=== PATIENT | male | born 1955 | race Caucasian/White ===

== ENCOUNTER 2018-12-16 06:11 | Inpatient (IN) | payer OTHER, MEDICAID ==
[~2018-12-16] VITALS: Ht 167.6 cm; Wt 76.1 kg
[~2018-12-16 06:11] MED LIST: AMIT50TA PO; BACL20TA PO; CYCL-259 PO; DULO60CA7 PO; GABA300C10 PO; HYDR-3307 PO; LISI1TAB3 PO; SENN1TAB67 PO; SIMV40TA3 PO; TAMS-11 PO
[2018-12-16] MEDS ORDERED: MIDAZOLAM 1 MG/ML, 2ML ONE (06:23)
[2018-12-16] MEDS ORDERED: FENTANYL PF 250 MCG/5ML ONE (06:23)
[2018-12-16] MEDS ORDERED: LACTATED RINGERS 1,000 ML IV SCH (06:30)
[2018-12-16] MEDS ORDERED: THROMBIN 5,000 UNIT VIAL TP ONE (06:31)
[2018-12-16] MEDS ORDERED: BUPIVACAINE/PF-EPI 0.5% 1:200K ONE (06:31)
[2018-12-16] MEDS ORDERED: BACITRACIN 50,000 UNIT ONE (06:32)
[2018-12-16 06:34] VITALS: BP 131/82
[2018-12-16] MEDS ORDERED: GABAPENTIN 300 MG CAPSULE PO ONE (07:00)
[2018-12-16] MEDS ORDERED: HYDROmorphone 1 MG/ML, 1ML INJ IV PRN (08:00)
[2018-12-16] MEDS ORDERED: LABETALOL 5MG/ML, 20ML IV PRN (08:00)
[2018-12-16] MEDS ORDERED: ALBUTEROL SULFATE 2.5 MG/3 ML NPPB PRN (08:00)
[2018-12-16] MEDS ORDERED: hydrALAzine 20 MG/ML, 1ML IV PRN (08:00)
[2018-12-16] MEDS ORDERED: PROMETHAZINE 25 MG/ML, 1ML IV PRN (08:00)
[2018-12-16] MEDS ORDERED: OXYcodone 5 MG/5 ML ORAL.SOL UDC PO PRN (08:00)
[2018-12-16] MEDS ORDERED: METOCLOPRAMIDE 5 MG/ML, 2ML IV PRN (08:00)
[2018-12-16] MEDS ORDERED: KETOROLAC 30 MG/1 ML IV PRN (08:00)
[2018-12-16] MEDS ORDERED: FENTANYL PF 100 MCG/2ML IV PRN (08:00)
[2018-12-16] MEDS ORDERED: ONDANSETRON 2MG/ML, 2ML IVPush PRN (08:00)
[2018-12-16] MEDS ORDERED: MEPERIDINE/PF 25MG/0.5ML IVPush PRN (08:00)
[2018-12-16] MEDS ORDERED: FENTANYL PF 100 MCG/2ML ONE (08:35)
[2018-12-16] MEDS ORDERED: HYDROmorphone 2 MG/ML, 1ML ONE (08:36)
[2018-12-16] MEDS ORDERED: OXYcodone 5 MG/5 ML ORAL.SOL UDC ONE (08:36)
[2018-12-16] MEDS ORDERED: hydrALAzine 20 MG/ML, 1ML ONE (09:22)
[2018-12-16] MEDS ORDERED: CYCLOBENZAPRINE 10 MG TABLET ONE (09:28)
[2018-12-16] MEDS ORDERED: CYCLOBENZAPRINE 10 MG TABLET PO ONE (09:30)
[2018-12-16 10:42] LABS: MICROSCOPIC NOT IND
[2018-12-16 10:43] LABS: CULTURE INDICATED? NO
[2018-12-16 10:45] VITALS: BP 115/66
[2018-12-16] MEDS ORDERED: PHARMACY MAY ADJ FOR RENAL FX MC PRN (11:00)
[2018-12-16] MEDS ORDERED: MAGNESIUM HYDROXIDE 8%, 30ML UDC PO PRN (11:30)
[2018-12-16] MEDS ORDERED: morphine SULFATE 10 MG/ML, 1ML IV PRN (11:30)
[2018-12-16] MEDS ORDERED: PROMETHAZINE 25 MG/ML, 1ML IM PRN (11:30)
[2018-12-16] MEDS ORDERED: DIPHENHYDRAMINE 50 MG CAPSULE PO PRN (11:30)
[2018-12-16] MEDS ORDERED: BISACODYL 10 MG SUPP PR PRN (11:30)
[2018-12-16] MEDS ORDERED: CYCLOBENZAPRINE 10 MG TABLET PO PRN (11:30)
[2018-12-16] MEDS ORDERED: OXYcodone/APAP 5/325MG TABLET PO PRN (11:30)
[2018-12-16] MEDS ORDERED: ONDANSETRON 2MG/ML, 2ML IV PRN (11:30)
[2018-12-16 14:00] VITALS: BP 123/81
[2018-12-16] MEDS: CEFAZOLIN PMX 1GM/50ML 50 ML IVPB SCH ×2 (15:13→23:03)
[2018-12-16] MEDS: D5%-0.9% NACL+KCL 20MEQ 1,000 ML IV SCH (15:13)
[2018-12-16] MEDS ORDERED: PROPOFOL 10 MG/ML, 20ML ONE (15:42)
[2018-12-16] MEDS ORDERED: DEXAMETHASONE 4 MG/ML, 5ML ONE (15:42)
[2018-12-16] MEDS ORDERED: CEFAZOLIN 1,000 MG ONE (15:42)
[2018-12-16] MEDS ORDERED: SUCCINYLCHOLINE 20 MG/ML, 10ML ONE (15:42)
[2018-12-16] MEDS ORDERED: ROCURONIUM 10MG/ML,5ML ONE (15:42)
[2018-12-16] MEDS ORDERED: KETOROLAC 30 MG/1 ML ONE (15:42)
[2018-12-16] MEDS ORDERED: ONDANSETRON 2MG/ML, 2ML ONE (15:42)
[2018-12-16] MEDS: HYDROcodone/APAP 10/325 MG TABLET PO PRN ×2 (17:21→23:03)
[2018-12-16] MEDS: GABAPENTIN 300 MG CAPSULE PO SCH (20:57)
[2018-12-16] MEDS ORDERED: SIMVASTATIN 40 MG TABLET PO SCH (21:00)
[2018-12-16 21:58] VITALS: BP 107/71
[2018-12-17 00:52] VITALS: BP 105/69
[2018-12-17] MEDS: D5%-0.9% NACL+KCL 20MEQ 1,000 ML IV SCH ×2 (01:13→11:00)
[2018-12-17 04:49] VITALS: BP 136/82
[2018-12-17] MEDS ORDERED: HYDROCHLOROTHIAZIDE 12.5 MG CAPSULE PO SCH (09:00)
[2018-12-17] MEDS ORDERED: LISINOPRIL 10 MG TABLET PO SCH (09:00)
[2018-12-17] MEDS ORDERED: DULOXETINE 30 MG CAPSULE.DR PO SCH (09:00)
[2018-12-17] MEDS ORDERED: SENNA/DOCUSATE TABLET PO SCH (09:00)
[2018-12-17] MEDS ORDERED: TAMSULOSIN 0.4 MG CAP.ER.24H PO SCH (09:00)
[2018-12-17 09:19] VITALS: BP 150/74
[2018-12-17] MEDS: GABAPENTIN 300 MG CAPSULE PO SCH (10:19)
[2018-12-17] MEDS ORDERED: HYDR-3307 PO (11:43)
[2018-12-17] MEDS ORDERED: CYCL-259 PO (11:43)
[2018-12-17] MEDS ORDERED: METH4TAB2 PO (11:50)
[2018-12-17 13:21] VITALS: BP 164/82
[2018-12-17] MEDS: HYDROcodone/APAP 10/325 MG TABLET PO PRN (13:28)
== END 2018-12-17 14:01 | disposition home or self-care (01) | DRG 472 ==
LOC: ORIP 06:11 → 4NOR 10:34 → DCLOUNGE 12-17 13:37
PROVIDERS: ADMIT Neurological Surgery; ATTEND Neurological Surgery
PROC: 01N10ZZ Release Cervical Nerve, Open Approach (ICD-10-PCS; 2018-12-16)
PROC: 0RB30ZZ Excision of Cervical Vertebral Disc, Open Approach (ICD-10-PCS; 2018-12-16)
PROC: 00NW0ZZ Release Cervical Spinal Cord, Open Approach (ICD-10-PCS; 2018-12-16)
PROC: 0RG20A0 Fusion of 2 or more Cervical Vertebral Joints with Interbody Fusion Device, Anterior Approach, Anterior Column, Open Approach (ICD-10-PCS; principal; 2018-12-16 07:00)
DX: M48.02 Spinal stenosis, cervical region (principal); M50.021 Cervical disc disorder at C4-C5 level with myelopathy; G35 Multiple sclerosis; M50.121 Cervical disc disorder at C4-C5 level with radiculopathy; I10 Essential (primary) hypertension
CPT/HCPCS: 72040; 81003; C1713; G0378; J0690; J1100; J1885; J2250; J2405; J2704; J3010; C1762; J0330; J0360; J3480; J7120

== ENCOUNTER 2018-12-19 17:37 | Inpatient (IN) | payer OTHER, MEDICAID ==
[~2018-12-19] VITALS: Ht 167.6 cm; Wt 71.2 kg
[~2018-12-19 17:37] MED LIST changes: +METH4TAB2 PO
--- NOTE | 2018-12-19 18:10 | NUR ---
BLADDER SCAN DONE SHOWING 130 MLS. PT TO RAD. 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 PT HAS HAD PRODUCTIVE COUGH SINCE CERVICAL FUSION SURGERY ON 12/16/18. PT C/O HAND AND LEFT SHOULDER PAIN.
--- NOTE | 2018-12-19 18:50 | NUR ---
PT STILL IN RAD.
--- NOTE | 2018-12-19 18:57 | NUR ---
IV STARTED IN MRI FOR CONTRAST.
[2018-12-19] MEDS ORDERED: GADOBUTROL 7.5 MMOL/7.5 ML PFS ONE (19:00)
[2018-12-19 19:36] LABS: BASOPHILS # (AUTO) 0.01 x10^3/uL (0-0.1); BASOPHILS % (AUTO) 0 % (0-1); EOSINOPHILS # (AUTO) 0.04 x10^3/uL (0-0.4); EOSINOPHILS % (AUTO) 0 % (1-7); LYMPHOCYTES # (AUTO) 0.85 x10^3/uL (1-3.4); LYMPHOCYTES % (AUTO) 6 % (22-44); MD NO; MEAN CORPUSCULAR HEMOGLOBIN 32.5 pg (27.5-34.5); MEAN CORPUSCULAR VOLUME 95.7 fL (81-97); MEAN PLATELET VOLUME 8.2 fL (7.4-10.4); MONOCYTES # (AUTO) 0.66 x10^3/uL (0.2-0.8); MONOCYTES % (AUTO) 5 % (2-9); NEUTROPHILS # (AUTO) 12.43 x10^3/uL (1.8-6.8); NEUTROPHILS % (AUTO) 89 % (42-75); PLATELET COUNT 295 x10^3/uL (130-400); RED BLOOD COUNT 4.12 x10^6/uL (4.38-5.82); RED CELL DISTRIBUTION WIDTH 13.8 % (9.4-14.8)
--- NOTE | 2018-12-19 19:41 | NUR ---
PT STILL HAS FEVER OF 101.0. PT WAS 88% ON RA AND GIVEN 2 LITERS O2 NC. PT WENT UP TO 96%. DR. JORDAN AWARE. BLOOD CULTURES TO BE DRAWN AND ANTIBIOTICS STARTED.
[2018-12-19 19:48] LABS: ALBUMIN 3.5 g/dL (3.4-5.0); ANION GAP 6 mmol/L (5-15); CALCIUM 8.3 mg/dL (8.5-10.1); CHLORIDE 104 mmol/L (98-107); CREATININE 0.91 mg/dL (0.7-1.3)
[2018-12-19] MEDS ORDERED: SODIUM CHLORIDE FLUSH 10ML SYR IVF ONE (20:00)
[2018-12-19] MEDS ORDERED: CEFTRIAXONE PMX 1GM/50ML 50 ML IVPB ONE (20:00)
[2018-12-19] MEDS ORDERED: SODIUM CHLORIDE 0.9% 1,000ML IVBOLUS ONE ×2 (20:00→21:00)
[2018-12-19] MEDS ORDERED: CEFTRIAXONE PMX 1GM/50ML 50 ML ONE (20:17)
[2018-12-19] MEDS ORDERED: DEXAMETHASONE 4 MG/ML, 1ML ONE (20:17)
[2018-12-19] MEDS: DEXAMETHASONE 4 MG/ML, 1ML IVPush SCH ×2 (20:22→21:00)
[2018-12-19] MEDS ORDERED: SODIUM CHLORIDE FLUSH 10ML SYR IVF PRN (20:30)
[2018-12-19] MEDS ORDERED: DEXAMETHASONE 4 MG/ML, 1ML IVPush ONE (20:30)
[2018-12-19] MEDS: AZITHROMYCIN 500 MG in SODIUM CHLORIDE 0.9% 250 ML IV ONE ×2 (20:30→21:27)
--- NOTE | 2018-12-19 20:41 | NUR ---
DR. BEAUCHAMP AT BEDSIDE FOR ADMIT. PT TO BE ADMITTED TO THE ICU. ICU DOES NOT HAVE ANY BEDS AND PT WILL BE A HOLD. HOSPITAL BED REQUESTED.
[2018-12-19 20:51] LABS: MICROSCOPIC NOT IND
[2018-12-19 21:00] LABS: CULTURE INDICATED? NO
[2018-12-19] MEDS ORDERED: AZITHROMYCIN 500 MG in SODIUM CHLORIDE 0.9% 250 ML IV SCH (21:00)
[2018-12-19] MEDS ORDERED: KETOROLAC 30 MG/1 ML IV PRN (21:00)
[2018-12-19] MEDS ORDERED: ONDANSETRON 2MG/ML, 2ML IVPush PRN (21:00)
[2018-12-19] MEDS ORDERED: CEFTRIAXONE 1,000 MG in SODIUM CHLORIDE 0.9% 50 ML IVPB SCH (21:00)
[2018-12-19] MEDS ORDERED: morphine SULFATE 10 MG/ML, 1ML IVPush PRN (21:00)
[2018-12-19] MEDS ORDERED: ACETAMINOPHEN 325 MG TABLET PO PRN (21:00)
[2018-12-19] MEDS ORDERED: CYCLOBENZAPRINE 10 MG TABLET PO PRN (21:00)
[2018-12-19] MEDS ORDERED: LABETALOL 5MG/ML, 20ML IVPush PRN (21:00)
[2018-12-19] MEDS ORDERED: POLYETHYLENE GLYCOL 17 GM PACKET PO PRN (21:00)
[2018-12-19] MEDS ORDERED: OXYcodone/APAP 5/325MG TABLET PO PRN (21:00)
[2018-12-19] MEDS ORDERED: KETOROLAC 30 MG/1 ML ONE (21:39)
[2018-12-19] MEDS ORDERED: TAMSULOSIN 0.4 MG CAP.ER.24H ONE (21:41)
[2018-12-19] MEDS ORDERED: FAMOTIDINE 20 MG TABLET ONE (21:41)
[2018-12-19] MEDS ORDERED: GABAPENTIN 300 MG CAPSULE ONE (21:41)
[2018-12-19] MEDS: GABAPENTIN 300 MG CAPSULE PO SCH (21:44)
[2018-12-19] MEDS: FAMOTIDINE 20 MG TABLET PO SCH (21:44)
[2018-12-19] MEDS: TAMSULOSIN 0.4 MG CAP.ER.24H PO SCH (21:45)
[2018-12-19] MEDS: HYDROCHLOROTHIAZIDE 12.5 MG CAPSULE PO SCH (22:03)
[2018-12-19] MEDS: SIMVASTATIN 40 MG TABLET PO SCH (22:03)
[2018-12-19] MEDS: DULOXETINE 30 MG CAPSULE.DR PO SCH (22:03)
[2018-12-19] MEDS: AMITRIPTYLINE 50 MG TABLET PO SCH (22:03)
[2018-12-19] MEDS ORDERED: LISINOPRIL 10 MG TABLET ONE (22:05)
[2018-12-19] MEDS: LISINOPRIL 10 MG TABLET PO SCH (22:07)
--- NOTE | 2018-12-19 22:13 | NUR ---
REPORT TO DOROTHY LUCERO.
[2018-12-19] MEDS: LACTATED RINGERS 1,000 ML IV SCH (22:37)
--- NOTE | 2018-12-19 22:42 | NUR ---
PT RESTING CALMLY WATCHING TV, DENIES PAIN OR NEEDS AT THIS TIME, IV FLUIDS INFUSING, MONITORS IN PLACE, SIDERAILS UP X2, CALL LIGHT WITHIN REACH.
[2018-12-19] MEDS ORDERED: TIZANIDINE 4MG TABLET PO PRN (23:00)
--- NOTE | 2018-12-19 23:01 | NUR ---
PROVIDED PT WITH SPECIMEN CUP FOR SPUTUM SAMPLE, PT UNABLE TO PROVIDE SAMPLE AT THIS TIME
[2018-12-19 23:19] LABS: RAPID INFLUENZA A Negative (Negative); RAPID INFLUENZA B Negative (Negative)
--- NOTE | 2018-12-20 00:04 | NUR ---
PT RESTING WITH EYES CLOSED, AROUSES EASILY TO VERBAL RESPONSE, DENIES PAIN OR NEEDS, MONITORS IN PLACE, SIDERAILS UP X2, CALL LIGHT WITHIN REACH
--- NOTE | 2018-12-20 00:52 | NUR ---
RESTING QUIETLY, NAD AT THIS TIME.
--- NOTE | 2018-12-20 01:09 | NUR ---
PT REPORTS THAT HE IS FEELING "FINE, NO PRBLEMS AT THIS TIME. PLEASANT GENTLEMAN, URINAL EMPTIED AND REMINDED OF US OF CALL CARDOZA.
--- NOTE | 2018-12-20 01:58 | NUR ---
PT RESTING CALMLY, DENIES NEEDS, MONITORS IN PLACE, CALL LIGHT WITHIN REACH
[2018-12-20] MEDS ORDERED: DEXAMETHASONE 4 MG/ML, 1ML ONE ×2 (02:55→07:48)
[2018-12-20] MEDS: DEXAMETHASONE 4 MG/ML, 1ML IVPush SCH ×5 (02:59→22:18)
--- NOTE | 2018-12-20 02:59 | NUR ---
PT MEDICATED PER MAR
--- NOTE | 2018-12-20 03:21 | NUR ---
NOTED PT SPILT URINAL IN HIS BED, PT AND ROOM CLEANED, PROVIDED PT WITH CLEAN GOWN,FULL LINEN CHANGE COMPLETED.
--- NOTE | 2018-12-20 04:14 | NUR ---
PT RESTING WITH EYES CLOSED, AROUSES TO VERBAL RESPONSE, ANSWERS ALL QUESTIONS APPROPRIATELY, DENIES NEEDS, CALL LIGHT WITHIN REACH.
[2018-12-20 04:28] LABS: BASOPHILS # (AUTO) 0.04 x10^3/uL (0-0.1); BASOPHILS % (AUTO) 0 % (0-1); EOSINOPHILS % (AUTO) 0 % (1-7); LYMPHOCYTES # (AUTO) 0.66 x10^3/uL (1-3.4); LYMPHOCYTES % (AUTO) 4 % (22-44); MD NO; MEAN CORPUSCULAR HEMOGLOBIN 32.3 pg (27.5-34.5); MEAN CORPUSCULAR HGB CONC 33.7 g/dL (33.2-36.2); MEAN CORPUSCULAR VOLUME 95.9 fL (81-97); MEAN PLATELET VOLUME 8.3 fL (7.4-10.4); MONOCYTES # (AUTO) 0.48 x10^3/uL (0.2-0.8); MONOCYTES % (AUTO) 3 % (2-9); NEUTROPHILS # (AUTO) 13.63 x10^3/uL (1.8-6.8); NEUTROPHILS % (AUTO) 92 % (42-75); PLATELET COUNT 255 x10^3/uL (130-400); RED BLOOD COUNT 3.57 x10^6/uL (4.38-5.82); RED CELL DISTRIBUTION WIDTH 13.8 % (9.4-14.8)
[2018-12-20 04:35] LABS: ANION GAP 4 mmol/L (5-15); CALCIUM 7.7 mg/dL (8.5-10.1); CHLORIDE 111 mmol/L (98-107)
[2018-12-20 04:36] LABS: CREATININE 0.83 mg/dL (0.7-1.3)
--- NOTE | 2018-12-20 05:05 | NUR ---
PT RESTING WITH EYES CLOSED, NAD, EQUAL CHEST RISE/FALL OBSERVED, SIDERAILS UP X2, CALL LIGHT WITHIN REACH
--- NOTE | 2018-12-20 05:51 | NUR ---
[employer] CALLED FOR CENTRAL STOCKINGS Addendum: 12/20/18 at 0552 by RICHARD [employer] CALLED FOR SEQUENTIAL STOCKINGS
[2018-12-20] MEDS: LACTATED RINGERS 1,000 ML IV SCH (06:02)
--- NOTE | 2018-12-20 06:09 | NUR ---
PT RESTING IN BED, SEQUENTIAL STOCKING APPLIED, DENIES NEEDS, CALL LIGHT WITHIN REACH
--- NOTE | 2018-12-20 06:58 | NUR ---
REPORT GIVEN TO JAZMINE VALENCIA
[2018-12-20] MEDS ORDERED: SENNA/DOCUSATE TABLET ONE (07:48)
[2018-12-20] MEDS ORDERED: FAMOTIDINE 20 MG TABLET ONE (07:48)
[2018-12-20] MEDS ORDERED: GABAPENTIN 300 MG CAPSULE ONE (07:49)
[2018-12-20] MEDS: FAMOTIDINE 20 MG TABLET PO SCH (07:56)
[2018-12-20] MEDS: SENNA/DOCUSATE TABLET PO SCH (07:56)
[2018-12-20] MEDS: GABAPENTIN 300 MG CAPSULE PO SCH ×2 (07:57→22:18)
--- NOTE | 2018-12-20 08:08 | NUR ---
0700 - 0808 SBAR RPT REC'D FROM JAZMINE DE LA CRUZ. PT ASSISSTED RN X 1 OOB TO SIT IN CHAIR. PT ABLE TO STAND W/O ASSISTANCE, SHUFFLE GAIT TO TRANSFER TO CHAIR. SITS UP INDEPENDANTLY. WAFFLE MATTRESS PLAED ON BED AND COMPLETE LINEN CHANGE. PT WITH INCONTINENCE BRIEF IN PLACE. BREIF REMOVED, SKIN INTACT. PT VERBALIZES HE IS ABLE TO USE URINAL. PT RTD TO BED, CLEAN GOWN PLACED, ECG STICKERS REMOVED AND NEW PLACED IN DIFFERENT AREA. WARM BLANKETS PROVIDED AND URINAL PLACED AT BEDSIDE W/I PT REACH. CALL LIGHT W/I REACH. PT MED NOTED AND DAILY POC REVIEWED. PT W/ FAINT CRACKLES NOTED TO JERED POSTERIOR LUNG BASES. PT INSTRUCTED ON USE OF INCENTIVE SPIROMETER (IS) WEAK EFFORT WITH VOLUMES TO 450ML. TODAYS IS GOAL OF 750ML DISCUSSED WITH PT AND PT AGREES TO USE IS 2X EVERYTIME A TV COMMERCIAL IS ON. DIET TRAY ORDERED.
[2018-12-20] MEDS: HYDROCHLOROTHIAZIDE 12.5 MG CAPSULE PO SCH (08:17)
--- NOTE | 2018-12-20 10:15 | NUR ---
PT ATE 100% OF BREAKFAST. PT OOB TO CHAIR WITH RN STAND BY ASSIST. URINAL, CALL LIGHT AND CELL PHONE W/I REACH. PT VERBALIZES UNDERSTANDING TO CALL FOR RN IF HE NEEDS ANYTHING.
--- NOTE | 2018-12-20 10:19 | NUR ---
LATE ENTRY 0845 DR OLVERA AT BEDSIDE. PT ASSESSMENT, CT RESULTS REVIEWED. POC DISCUSSED. PT SITTING UPRIGHT IN BED EATING BREAKFAST, NO S/S OF SWALLOWING DIFFICULTY NOTED. DR OLVERA REQUESTS PT TO BE NPO AFTER BREAKFAST AND SWALLOWING EVAL TO BE DONE IN AM. PT VERBALIZES UNDERSTANDING. RIGHT NECK FLUID COLLECTION STABLE ON CT PER DR. OLVERA, NO TRACHEAL IMPINGMENT NOTED. PT OK TO BE OOB TO CHAIR TOLLERATED.
--- NOTE | 2018-12-20 11:04 | NUR ---
PT RTD TO BED, RN STANDBY ASSIST. PT USING IS INDEPENDENTLY, VOLUMES NOW TO 750ML AND INCREASED COUGHING.
--- NOTE | 2018-12-20 11:30 | NUR ---
SBAR RPT TO SE[facility]IEN, CCU, RN
[2018-12-20] MEDS: MEROPENEM 1 GM in SODIUM CHLORIDE 0.9% 100 ML IV SCH ×2 (12:06→20:26)
[2018-12-20] MEDS ORDERED: VANCOMYCIN PER PHARMACY MC PRN (13:00)
[2018-12-20] MEDS ORDERED: PHARMACOKINETIC CONSULTATION MC ONE (13:00)
[2018-12-20] MEDS ORDERED: PHARMACOKINETIC MONITORING MC PRN (13:00)
[2018-12-20 14:48] VITALS: BP 158/92
[2018-12-20] MEDS: VANCOMYCIN 1,400 MG in SODIUM CHLORIDE 0.9% 250 ML IV SCH (17:23)
--- NOTE | 2018-12-20 17:24 | NUR ---
REC NPO; swallow precautions sheet posted at bedside Addendum: 12/20/18 at [address] Amended: Links added.
[2018-12-20] MEDS: LISINOPRIL 10 MG TABLET PO SCH (22:18)
[2018-12-20] MEDS: AMITRIPTYLINE 50 MG TABLET PO SCH (22:18)
[2018-12-20] MEDS: TAMSULOSIN 0.4 MG CAP.ER.24H PO SCH (22:18)
[2018-12-20] MEDS: DULOXETINE 30 MG CAPSULE.DR PO SCH (22:19)
[2018-12-20] MEDS: SIMVASTATIN 40 MG TABLET PO SCH (22:19)
[2018-12-21] MEDS: DEXAMETHASONE 4 MG/ML, 1ML IVPush SCH ×2 (03:23→09:07)
[2018-12-21 04:00] VITALS: BP 134/83
[2018-12-21 05:04] LABS: BASOPHILS # (AUTO) 0.01 x10^3/uL (0-0.1); BASOPHILS % (AUTO) 0 % (0-1); EOSINOPHILS % (AUTO) 0 % (1-7); LYMPHOCYTES # (AUTO) 0.82 x10^3/uL (1-3.4); LYMPHOCYTES % (AUTO) 6 % (22-44); MD NO; MEAN CORPUSCULAR HEMOGLOBIN 32.2 pg (27.5-34.5); MEAN CORPUSCULAR HGB CONC 34.1 g/dL (33.2-36.2); MEAN CORPUSCULAR VOLUME 94.5 fL (81-97); MEAN PLATELET VOLUME 8.6 fL (7.4-10.4); MONOCYTES % (AUTO) 2 % (2-9); NEUTROPHILS # (AUTO) 13.11 x10^3/uL (1.8-6.8); NEUTROPHILS % (AUTO) 92 % (42-75); PLATELET COUNT 340 x10^3/uL (130-400); RED BLOOD COUNT 4.15 x10^6/uL (4.38-5.82); RED CELL DISTRIBUTION WIDTH 13.8 % (9.4-14.8)
[2018-12-21] MEDS: MEROPENEM 1 GM in SODIUM CHLORIDE 0.9% 100 ML IV SCH ×3 (05:05→20:26)
[2018-12-21 05:24] LABS: ALANINE AMINOTRANSFERASE 19 U/L (12-78); ALBUMIN 2.9 g/dL (3.4-5.0); ANION GAP 5 mmol/L (5-15); CALCIUM 8.6 mg/dL (8.5-10.1); CHLORIDE 108 mmol/L (98-107); CREATININE 0.84 mg/dL (0.7-1.3)
[2018-12-21 05:27] LABS: ALKALINE PHOSPHATASE 66 U/L (45-117); BILIRUBIN,TOTAL 0.9 mg/dL (0.2-1.0); TOTAL PROTEIN 6.8 g/dL (6.4-8.2)
[2018-12-21] MEDS: VANCOMYCIN 1,400 MG in SODIUM CHLORIDE 0.9% 250 ML IV SCH (06:34)
[2018-12-21] MEDS: SENNA/DOCUSATE TABLET PO SCH (09:05)
[2018-12-21] MEDS: HYDROCHLOROTHIAZIDE 12.5 MG CAPSULE PO SCH (09:06)
[2018-12-21] MEDS: GABAPENTIN 300 MG CAPSULE PO SCH ×2 (09:07→20:37)
[2018-12-21] MEDS ORDERED: FAMOTIDINE 20 MG/2 ML IVPush SCH (09:30)
[2018-12-21] MEDS: ALUMINUM/MAG/SIMETHICONE 30 ML UDC PO SCH ×2 (11:28→17:29)
[2018-12-21] MEDS: LIDOCAINE 2% VISCOUS 15 ML UDC PO SCH ×2 (11:30→17:29)
[2018-12-21 13:28] LABS: HCT (SEDRATE) 38.8 % (39.2-51.8)
[2018-12-21] MEDS: TAMSULOSIN 0.4 MG CAP.ER.24H PO SCH (20:37)
[2018-12-21] MEDS: AMITRIPTYLINE 50 MG TABLET PO SCH (20:38)
[2018-12-21] MEDS: FAMOTIDINE 20 MG TABLET PO SCH (20:38)
[2018-12-21] MEDS: SIMVASTATIN 40 MG TABLET PO SCH (20:38)
[2018-12-21] MEDS: DULOXETINE 30 MG CAPSULE.DR PO SCH (20:38)
[2018-12-21] MEDS: LISINOPRIL 10 MG TABLET PO SCH (20:38)
[2018-12-21] MEDS ORDERED: DEXAMETHASONE 4 MG/ML, 1ML IV SCH (21:00)
[2018-12-21 21:45] VITALS: BP 173/91
[2018-12-21] MEDS: ENALAPRILAT 1.25 MG/ML, 2ML IVPush PRN ×2 (21:55→22:47)
[2018-12-21 22:17] VITALS: BP 166/86
[2018-12-21 22:40] VITALS: BP 182/100
[2018-12-21 23:39] VITALS: BP 182/97
[2018-12-21] MEDS: LABETALOL 5 MG/ML SYRINGE IVPush PRN (23:42)
[2018-12-22] MEDS: VANCOMYCIN 1,400 MG in SODIUM CHLORIDE 0.9% 250 ML IV SCH (00:41)
[2018-12-22 00:47] VITALS: BP 152/80
[2018-12-22] MEDS: MEROPENEM 1 GM in SODIUM CHLORIDE 0.9% 100 ML IV SCH ×3 (04:51→20:12)
[2018-12-22 05:26] LABS: BASOPHILS % (AUTO) 0 % (0-1); EOSINOPHILS # (AUTO) 0.11 x10^3/uL (0-0.4); EOSINOPHILS % (AUTO) 1 % (1-7); LYMPHOCYTES # (AUTO) 0.98 x10^3/uL (1-3.4); LYMPHOCYTES % (AUTO) 8 % (22-44); MD NO; MEAN CORPUSCULAR HEMOGLOBIN 31.9 pg (27.5-34.5); MEAN CORPUSCULAR HGB CONC 33.7 g/dL (33.2-36.2); MEAN CORPUSCULAR VOLUME 94.7 fL (81-97); MEAN PLATELET VOLUME 8.3 fL (7.4-10.4); MONOCYTES % (AUTO) 4 % (2-9); NEUTROPHILS # (AUTO) 11.33 x10^3/uL (1.8-6.8); NEUTROPHILS % (AUTO) 88 % (42-75); PLATELET COUNT 374 x10^3/uL (130-400); RED BLOOD COUNT 3.84 x10^6/uL (4.38-5.82); RED CELL DISTRIBUTION WIDTH 13.5 % (9.4-14.8)
[2018-12-22 05:39] LABS: HCT (SEDRATE) 36.4 % (39.2-51.8)
[2018-12-22 05:40] LABS: CHLORIDE 107 mmol/L (98-107)
[2018-12-22 05:57] LABS: ALANINE AMINOTRANSFERASE 23 U/L (12-78); ALBUMIN 2.6 g/dL (3.4-5.0); ALKALINE PHOSPHATASE 62 U/L (45-117); ANION GAP 6 mmol/L (5-15); BILIRUBIN,TOTAL 0.5 mg/dL (0.2-1.0); CALCIUM 8.3 mg/dL (8.5-10.1); CREATININE 0.81 mg/dL (0.7-1.3); TOTAL PROTEIN 6.3 g/dL (6.4-8.2)
[2018-12-22] MEDS: LIDOCAINE 2% VISCOUS 15 ML UDC PO SCH ×3 (06:31→16:00)
[2018-12-22] MEDS: ALUMINUM/MAG/SIMETHICONE 30 ML UDC PO SCH ×3 (06:31→16:00)
[2018-12-22 07:49] VITALS: BP 148/90
[2018-12-22] MEDS: GABAPENTIN 300 MG CAPSULE PO SCH ×2 (08:21→20:13)
[2018-12-22] MEDS: SENNA/DOCUSATE TABLET PO SCH (08:21)
[2018-12-22] MEDS: FAMOTIDINE 20 MG TABLET PO SCH ×2 (08:21→20:13)
[2018-12-22] MEDS: HYDROCHLOROTHIAZIDE 12.5 MG CAPSULE PO SCH (08:21)
[2018-12-22] MEDS: DEXAMETHASONE 4 MG/ML, 1ML IV SCH ×2 (09:08→17:00)
[2018-12-22 13:27] VITALS: BP 145/89
[2018-12-22 19:33] VITALS: BP 160/94
[2018-12-22] MEDS: LISINOPRIL 10 MG TABLET PO SCH (20:12)
[2018-12-22] MEDS: SIMVASTATIN 40 MG TABLET PO SCH (20:13)
[2018-12-22] MEDS: TAMSULOSIN 0.4 MG CAP.ER.24H PO SCH (20:13)
[2018-12-22] MEDS: AMITRIPTYLINE 50 MG TABLET PO SCH (20:13)
[2018-12-22] MEDS: DULOXETINE 30 MG CAPSULE.DR PO SCH (20:13)
[2018-12-23] MEDS: DEXAMETHASONE 4 MG/ML, 1ML IV SCH (00:44)
[2018-12-23 01:15] VITALS: BP 173/96
[2018-12-23] MEDS: LABETALOL 5 MG/ML SYRINGE IVPush PRN (02:00)
[2018-12-23 03:20] VITALS: BP 144/91
[2018-12-23] MEDS: MEROPENEM 1 GM in SODIUM CHLORIDE 0.9% 100 ML IV SCH ×2 (03:28→12:10)
[2018-12-23 05:28] LABS: BASOPHILS # (AUTO) 0.07 x10^3/uL (0-0.1); BASOPHILS % (AUTO) 1 % (0-1); EOSINOPHILS % (AUTO) 0 % (1-7); LYMPHOCYTES # (AUTO) 1.24 x10^3/uL (1-3.4); LYMPHOCYTES % (AUTO) 10 % (22-44); MD NO; MEAN CORPUSCULAR HEMOGLOBIN 32.1 pg (27.5-34.5); MEAN CORPUSCULAR HGB CONC 33.8 g/dL (33.2-36.2); MEAN CORPUSCULAR VOLUME 94.8 fL (81-97); MEAN PLATELET VOLUME 8.5 fL (7.4-10.4); MONOCYTES # (AUTO) 0.92 x10^3/uL (0.2-0.8); MONOCYTES % (AUTO) 8 % (2-9); NEUTROPHILS # (AUTO) 9.67 x10^3/uL (1.8-6.8); NEUTROPHILS % (AUTO) 81 % (42-75); PLATELET COUNT 381 x10^3/uL (130-400); RED BLOOD COUNT 4.02 x10^6/uL (4.38-5.82); RED CELL DISTRIBUTION WIDTH 13.9 % (9.4-14.8)
[2018-12-23 05:37] LABS: ANION GAP 7 mmol/L (5-15); CALCIUM 8.4 mg/dL (8.5-10.1); CHLORIDE 106 mmol/L (98-107)
[2018-12-23 05:39] LABS: CREATININE 0.86 mg/dL (0.7-1.3)
[2018-12-23] MEDS: LIDOCAINE 2% VISCOUS 15 ML UDC PO SCH ×3 (06:28→16:22)
[2018-12-23] MEDS: ALUMINUM/MAG/SIMETHICONE 30 ML UDC PO SCH ×3 (06:28→16:21)
[2018-12-23 06:55] VITALS: BP 142/91
[2018-12-23] MEDS: GABAPENTIN 300 MG CAPSULE PO SCH (08:13)
[2018-12-23] MEDS: FAMOTIDINE 20 MG TABLET PO SCH (08:13)
[2018-12-23] MEDS: HYDROCHLOROTHIAZIDE 12.5 MG CAPSULE PO SCH (08:13)
[2018-12-23] MEDS: SENNA/DOCUSATE TABLET PO SCH (08:13)
[2018-12-23 14:04] VITALS: BP 160/94
[2018-12-23] MEDS ORDERED: ACID1TAB7 PO (15:40)
[2018-12-23] MEDS ORDERED: CEFD300C37 PO (15:40)
[2018-12-23] MEDS ORDERED: CEFDINIR 300 MG CAPSULE PO SCH (16:00)
[2018-12-23] MEDS ORDERED: LACTOBACILLUS CHEW TABLET PO SCH (16:00)
== END 2018-12-23 18:19 | disposition home health service (06) | DRG 871 ==
LOC: ED 18:20 → EDIP 20:23 → CCU 12-20 10:19 → 3NE 12-21 21:51
PROVIDERS: ADMIT Family Medicine; ATTEND Family Medicine
DX: A41.9 Sepsis, unspecified organism (principal); J15.9 Unspecified bacterial pneumonia; M96.842 Postprocedural seroma of a musculoskeletal structure following a musculoskeletal system procedure; G35 Multiple sclerosis; E78.00 Pure hypercholesterolemia, unspecified; E78.5 Hyperlipidemia, unspecified; I10 Essential (primary) hypertension; M19.90 Unspecified osteoarthritis, unspecified site; R13.10 Dysphagia, unspecified; N40.0 Benign prostatic hyperplasia without lower urinary tract symptoms; Y83.8 Other surgical procedures as the cause of abnormal reaction of the patient, or of later complication, without mention of misadventure at the time of the procedure; T38.0X5A Adverse effect of glucocorticoids and synthetic analogues, initial encounter; R09.02 Hypoxemia; R29.6 Repeated falls; R32 Unspecified urinary incontinence; Z87.891 Personal history of nicotine dependence; Z88.0 Allergy status to penicillin; Y92.89 Other specified places as the place of occurrence of the external cause
CPT/HCPCS: 36415; 70450; 71045; 72156; 80048; 80053; 81003; 82040; 83605; 83735; 84100; 84145; 85025; 85651; 86140; 87040; 87070; 87081; 87205; 87400; 99285; A9585; G0378; J0456; J0696; J1100; J1885; J2185; J3370; J3490; J7030; J7050; J7120

== ENCOUNTER 2019-01-27 17:37 | Emergency (ER) | payer OTHER, MEDICAID ==
[~2019-01-27] VITALS: Ht 167.6 cm; Wt 70.5 kg
[~2019-01-27 17:37] MED LIST changes: +ACID1TAB7 PO; +CEFD300C37 PO
[2019-01-27 18:14] LABS: BASOPHILS # (AUTO) 0.05 x10^3/uL (0-0.1); BASOPHILS % (AUTO) 1 % (0-1); EOSINOPHILS # (AUTO) 0.26 x10^3/uL (0-0.4); EOSINOPHILS % (AUTO) 4 % (1-7); LYMPHOCYTES # (AUTO) 1.33 x10^3/uL (1-3.4); LYMPHOCYTES % (AUTO) 20 % (22-44); MD NO; MEAN CORPUSCULAR HEMOGLOBIN 31.8 pg (27.5-34.5); MEAN CORPUSCULAR HGB CONC 33.7 g/dL (33.2-36.2); MEAN CORPUSCULAR VOLUME 94.5 fL (81-97); MEAN PLATELET VOLUME 8.3 fL (7.4-10.4); MONOCYTES # (AUTO) 0.87 x10^3/uL (0.2-0.8); MONOCYTES % (AUTO) 13 % (2-9); NEUTROPHILS # (AUTO) 4.17 x10^3/uL (1.8-6.8); NEUTROPHILS % (AUTO) 63 % (42-75); PLATELET COUNT 323 x10^3/uL (130-400); RED BLOOD COUNT 4.04 x10^6/uL (4.38-5.82); RED CELL DISTRIBUTION WIDTH 14.4 % (9.4-14.8)
--- NOTE | 2019-01-27 18:16 | NUR ---
FROM LOBBY TO ROOM AT THIS TIME
[2019-01-27 18:20] LABS: ANION GAP 3 mmol/L (5-15); CALCIUM 8.6 mg/dL (8.5-10.1); CHLORIDE 111 mmol/L (98-107); CREATININE 0.87 mg/dL (0.7-1.3)
--- NOTE | 2019-01-27 18:30 | NUR ---
ASSUMED CARE OF PT AT THIS TIME. THIS IS A 64 YO MALE WHO PRESENTS TO THE ER C/O HAND/NECK PAIN AFTER A MGLF. PT HAS HX OF MS AND A RECENT NECK SX. PT DENIES MIDLINE NECK TENDERNESS APART FROM ACTUAL SURGERY SITE AND STATES THE PAIN THERE HAS NOT CHANGED AND REPORTS RIGHT SIDED NECK PAIN. PT AO X 4. SKIN PWD. RESP EVEN AND UNLABORED. PT DENIES VISION LOSS, CHANGES IN SENSATION OR CHANGES IN MOBILITY. PT ON CONT BP, CARDIAC AND O2 MONITORS. FAMILY AT BEDSIDE. CALL LIGHT WITHIN REACH. WILL CONT TO MONITOR PT.
--- NOTE | 2019-01-27 18:47 | NUR ---
PT TO IMAGING VIA [employer] AT THIS TIME.
--- NOTE | 2019-01-27 19:13 | NUR ---
YARA WEINSTEIN AT BEDSIDE FOR EVAL.
--- NOTE | 2019-01-27 19:33 | NUR ---
YARA WEINSTEIN AWARE OF BP OF 183/102. NO ORDERS RECEIVED AT THIS TIME. PT DENIESS DIZZINESS OR VISION CHANGES. C/O HEADACHE AFTER MGLF WITH HEMATOMA TO BACK OF HEAD. Addendum: 01/27/19 at 2057 by ERICA YARA WEINSTEIN AWARE OF BP OF 183/102. NO ORDERS RECEIVED AT THIS TIME. PT DENIESS DIZZINESS OR VISION CHANGES. PT C/O HEADACHE AFTER MGLF WITH HEMATOMA TO BACK OF HEAD. PT STATES HE HAS NOT TAKEN HIS BLOOD PRESSURE MEDICATION TODAY.
[2019-01-27] MEDS ORDERED: ACETAMINOPHEN 500 MG TABLET ONE (19:49)
--- NOTE | 2019-01-27 19:50 | NUR ---
PT CURRENTLY RESTING ON GUREY. NAD NOTED. PT REQUESTING PAIN MEDICATION. WILL DISCUSS WITH YARA WEINSTENI. STATING "WHAT ARE THEY GOING TO DO FOR HIM? HE DOESN'T REMEMBER ANYTHING". PT THEN STATED TO "HE SAID MY RESULTS LOOKED FINE. I DON'T HAVE A BLEED OR ANYTHING, AND I DIDN'T EVEN POP A BLOOD VESSEL WHERE MY BUMP IS LIKE HE THOUGHT I MIGHT HAVE". THEN STATED "SO NOW YOU REMEMBER?" PT STATED "WELL YEAH, SORRY ABOUT THAT." PERRDOTTY. PT ANSWERING ALL RN'S QUESTIONS APPROPRAITELY. PT ON CONT BP AND O2 MONITORS. CALL LIGHT WITHIN REACH. WILL CONT TO MONITOR PT.
[2019-01-27] MEDS ORDERED: ACETAMINOPHEN 500 MG TABLET PO ONE (20:00)
--- NOTE | 2019-01-27 20:12 | NUR ---
PT AMBULATED WELL WITH A CANE FOR SUPPORT.
--- NOTE | 2019-01-27 20:14 | NUR ---
PT C/O HEADACHE. PT MEDICATED ORDERED. PT ON CONT BP, CARDIAC AND O2 MONITORS. CALL LIGHT WITHIN REACH. WILL CONT TO MONITOR PT.YARA WEINSTEIN AT BEDSIDE FOR SECOND RECHECK WITH AND DAUGHTER AT BEDSIDE TO EXPLAIN RESULTS AND POC. PT AND FAMILY VERBALIZE UNDERSTANDING. ALL QUESTIONS ANSWERED.
[2019-01-27 20:45] VITALS: BP 179/105
== END 2019-01-27 21:07 | disposition home or self-care (01) ==
LOC: ED 20:45
DX: S06.0X0A Concussion without loss of consciousness, initial encounter (principal); S06.2X9A Diffuse traumatic brain injury with loss of consciousness of unspecified duration, initial encounter; E78.00 Pure hypercholesterolemia, unspecified; I10 Essential (primary) hypertension; W01.0XXA Fall on same level from slipping, tripping and stumbling without subsequent striking against object, initial encounter; Y93.89 Activity, other specified; Y92.830 Public park as the place of occurrence of the external cause; Y99.8 Other external cause status
CPT/HCPCS: 36415; 70450; 72125; 80048; 85025; 99284

== ENCOUNTER 2019-04-29 11:08 | Outpatient (CLI) | payer OTHER, MEDICAID | END 2019-04-29 23:59 | disposition home or self-care (01) | LOC: STAR 11:08 | PROVIDERS: ATTEND Neurological Surgery | DX: Z01.818 Encounter for other preprocedural examination (principal); M47.26 Other spondylosis with radiculopathy, lumbar region; M48.061 Spinal stenosis, lumbar region without neurogenic claudication | CPT/HCPCS: 93005 ==

== ENCOUNTER 2019-04-29 12:25 | Inpatient (IN) | payer OTHER, MEDICAID ==
[~2019-04-29] VITALS: Ht 170.2 cm; Wt 69.7 kg
[2019-05-05 07:17] VITALS: BP 150/82
== END 2019-05-05 13:26 | disposition home health service (06) | DRG 698 ==
LOC: ED 14:42 → EDIP 15:58 → 3NW 18:51 → DCLOUNGE 05-05 13:17
PROVIDERS: ADMIT Internal Medicine; ATTEND Internal Medicine
PROC: 0T9B70Z Drainage of Bladder with Drainage Device, Via Natural or Artificial Opening (ICD-10-PCS; principal; 2019-04-29)
DX: T83.511A Infection and inflammatory reaction due to indwelling urethral catheter, initial encounter (principal); A41.9 Sepsis, unspecified organism; N10 Acute pyelonephritis; E87.1 Hypo-osmolality and hyponatremia; B96.20 Unspecified Escherichia coli [E. coli] as the cause of diseases classified elsewhere; D64.9 Anemia, unspecified; E78.00 Pure hypercholesterolemia, unspecified; E78.5 Hyperlipidemia, unspecified; E83.39 Other disorders of phosphorus metabolism; E87.6 Hypokalemia; G35 Multiple sclerosis; G62.9 Polyneuropathy, unspecified; Z88.0 Allergy status to penicillin; I10 Essential (primary) hypertension; K59.00 Constipation, unspecified; M19.90 Unspecified osteoarthritis, unspecified site; N40.0 Benign prostatic hyperplasia without lower urinary tract symptoms; Y84.6 Urinary catheterization as the cause of abnormal reaction of the patient, or of later complication, without mention of misadventure at the time of the procedure; Y92.89 Other specified places as the place of occurrence of the external cause; Z87.891 Personal history of nicotine dependence; Z99.3 Dependence on wheelchair; Z79.899 Other long term (current) drug therapy
CPT/HCPCS: 36415; 71045; 80048; 80053; 81001; 83605; 83735; 83880; 84100; 84145; 85025; 85651; 86140; 87040; 87077; 87086; 87186; 93005; 96365; 99285; G0378; J0696; J1650; J3480

== ENCOUNTER 2019-06-30 14:49 | Outpatient (CLI) | payer MEDICAID, MEDICARE, OTHER ==
[~2019-06-30 14:49] MED LIST changes: +BACL-19 PO; +CARV3.1212 PO; +CIPR250T27 PO; +CIPR500T87 PO; -HYDR-3307 PO; +HYDR-3341 PO; +HYDR-36 PO; +HYDR-3622 PO; +INTE30PE3 INJ; +ISOS10TA2 PO; +LINE600T15 PO; +LISI1TAB23 PO; -LISI1TAB3 PO; +SENN-99 PO; +SUMA50TA4 PO
[2019-06-30] MEDS ORDERED: SENN-120 PO (15:34)
[2019-06-30 15:53] LABS: BASOPHILS # (AUTO) 0.08 x10^3/uL (0-0.1); BASOPHILS % (AUTO) 1 % (0-1); EOSINOPHILS # (AUTO) 0.39 x10^3/uL (0-0.4); EOSINOPHILS % (AUTO) 4 % (1-7); LYMPHOCYTES % (AUTO) 23 % (22-44); MD NO; MEAN CORPUSCULAR HGB CONC 32.5 g/dL (33.2-36.2); MEAN CORPUSCULAR VOLUME 92.4 fL (81-97); MEAN PLATELET VOLUME 8.1 fL (7.4-10.4); MONOCYTES # (AUTO) 0.73 x10^3/uL (0.2-0.8); MONOCYTES % (AUTO) 8 % (2-9); NEUTROPHILS # (AUTO) 6.22 x10^3/uL (1.8-6.8); NEUTROPHILS % (AUTO) 65 % (42-75); PLATELET COUNT 367 x10^3/uL (130-400); RED BLOOD COUNT 4.17 x10^6/uL (4.38-5.82); RED CELL DISTRIBUTION WIDTH 14.1 % (9.4-14.8)
[2019-06-30 15:59] LABS: ANION GAP 4 mmol/L (5-15); CALCIUM 8.8 mg/dL (8.5-10.1); CHLORIDE 106 mmol/L (98-107); CREATININE 1.01 mg/dL (0.7-1.3)
[2019-06-30 16:00] LABS: PROTHROMBIN TIME 10.5 Seconds (9.6-11.5)
== END 2019-06-30 23:59 | disposition home or self-care (01) ==
LOC: STAR 14:49
PROVIDERS: ATTEND Neurological Surgery
DX: Z01.818 Encounter for other preprocedural examination (principal); M48.061 Spinal stenosis, lumbar region without neurogenic claudication; M43.06 Spondylolysis, lumbar region
CPT/HCPCS: 36415; 80048; 85025; 85610; 85730

== ENCOUNTER 2019-07-06 07:28 | Inpatient (IN) | payer OTHER, MEDICAID ==
[~2019-07-06] VITALS: Ht 170.2 cm; Wt 74.1 kg
[~2019-07-06 07:28] MED LIST changes: +BACITRACIN 50,000 UNIT ONE; +BUPIVACAINE/PF 0.5% ONE; +EPINEPHRINE 1 MG/ML, 1ML ONE; +SENN-120 PO; +THROMBIN 5,000 UNIT VIAL TP ONE; +VANCOMYCIN 1,000 MG ONE
[2019-07-06] MEDS ORDERED: LACTATED RINGERS 1,000 ML IV SCH (08:03)
[2019-07-06 08:07] VITALS: BP 155/90
[2019-07-06] MEDS ORDERED: OxyconTIN ER 10 MG TAB.ER PO ONE (08:30)
[2019-07-06] MEDS ORDERED: GABAPENTIN 300 MG CAPSULE PO ONE (08:30)
[2019-07-06] MEDS ORDERED: ACETAMINOPHEN 500 MG TABLET PO ONE (08:30)
[2019-07-06] MEDS ORDERED: FENTANYL PF 250 MCG/5ML ONE (10:05)
[2019-07-06] MEDS ORDERED: MIDAZOLAM 1 MG/ML, 2ML ONE (10:05)
[2019-07-06] MEDS ORDERED: SUCCINYLCHOLINE 20 MG/ML, 10ML ONE (10:53)
[2019-07-06] MEDS ORDERED: PHENYLEPHRINE 10 MG/ML ONE (10:53)
[2019-07-06] MEDS ORDERED: ROCURONIUM 10 MG/ML,10ML ONE (10:53)
[2019-07-06] MEDS ORDERED: MIDAZOLAM 1 MG/ML, 2ML IV PRN (11:30)
[2019-07-06] MEDS ORDERED: hydrALAzine 20 MG/ML, 1ML IV PRN (11:30)
[2019-07-06] MEDS ORDERED: PROMETHAZINE 25 MG/ML, 1ML IV PRN (11:30)
[2019-07-06] MEDS ORDERED: OXYcodone 5 MG/5 ML ORAL.SOL UDC PO PRN (11:30)
[2019-07-06] MEDS ORDERED: MEPERIDINE/PF 25MG/ML,1ML IVPush PRN (11:30)
[2019-07-06] MEDS ORDERED: HYDROmorphone 2 MG/ML, 1ML IVPush PRN (11:30)
[2019-07-06] MEDS ORDERED: ALBUTEROL/IPRATROPIUM 2.5MG/0.5MG, 3 ML NPPB PRN (11:30)
[2019-07-06] MEDS ORDERED: METOPROLOL 1 MG/ML, 5ML IV PRN (11:30)
[2019-07-06] MEDS ORDERED: LIDOCAINE-MPF 2% ,5ML ONE (11:31)
[2019-07-06] MEDS ORDERED: LIDOCAINE GEL 2%, 5ML ONE ×2 (11:39)
[2019-07-06] MEDS ORDERED: CEFAZOLIN 1,000 MG ONE (11:40)
[2019-07-06] MEDS ORDERED: PROPOFOL 10 MG/ML, 20ML ONE (11:40)
[2019-07-06] MEDS ORDERED: ONDANSETRON 2MG/ML, 2ML ONE (11:40)
[2019-07-06] MEDS ORDERED: DEXAMETHASONE 4 MG/ML, 1ML ONE (11:40)
[2019-07-06] MEDS ORDERED: VANCOMYCIN 1,000 MG ONE (11:56)
[2019-07-06] MEDS ORDERED: METHOCARBAMOL 1,000 MG in DEXTROSE 5% 100 ML IV ONE (13:00)
[2019-07-06] MEDS ORDERED: FENTANYL PF 100 MCG/2ML ONE ×2 (13:05→13:27)
[2019-07-06] MEDS: FENTANYL PF 100 MCG/2ML IV PRN ×5 (13:07→13:39)
[2019-07-06] MEDS ORDERED: OXYcodone 5 MG/5 ML ORAL.SOL UDC ONE (13:40)
[2019-07-06] MEDS ORDERED: MAGNESIUM HYDROXIDE 8%, 30ML UDC PO PRN (15:00)
[2019-07-06] MEDS ORDERED: HYDROcodone/APAP 10/325 MG TABLET PO PRN (15:00)
[2019-07-06] MEDS ORDERED: DIPHENHYDRAMINE 25 MG CAPSULE PO PRN (15:00)
[2019-07-06] MEDS ORDERED: HYDROmorphone 2 MG/ML, 1ML IM PRN (15:00)
[2019-07-06] MEDS ORDERED: SUMATRIPTAN 50 MG TABLET PO PRN (15:00)
[2019-07-06] MEDS ORDERED: DIPHENHYDRAMINE 50 MG/ML, 1ML IM PRN (15:00)
[2019-07-06] MEDS ORDERED: PROMETHAZINE 25 MG/ML, 1ML IM PRN (15:00)
[2019-07-06] MEDS ORDERED: HYDROmorphone 2MG TABLET PO PRN (15:00)
[2019-07-06] MEDS ORDERED: DIPHENHYDRAMINE 50 MG/ML, 1ML IVPush PRN (15:00)
[2019-07-06] MEDS ORDERED: ONDANSETRON 2MG/ML, 2ML IV PRN (15:00)
[2019-07-06] MEDS ORDERED: BISACODYL 10 MG SUPP PR PRN (15:00)
[2019-07-06] MEDS ORDERED: METHOCARBAMOL 750 MG TABLET PO PRN (15:00)
[2019-07-06] MEDS: D5%-0.9% NACL+KCL 20MEQ 1,000 ML IV SCH (16:09)
[2019-07-06] MEDS: BACLOFEN 10 MG TABLET PO SCH ×2 (16:10→21:02)
[2019-07-06 19:17] VITALS: BP 117/76
[2019-07-06] MEDS: CEFAZOLIN PMX 1GM/50ML 50 ML IVPB SCH (19:40)
[2019-07-06] MEDS ORDERED: SIMVASTATIN 40 MG TABLET PO SCH (21:00)
[2019-07-06] MEDS: GABAPENTIN 300 MG CAPSULE PO SCH (21:02)
[2019-07-06] MEDS: OXYcodone/APAP 5/325MG TABLET PO PRN (23:00)
[2019-07-06 23:29] VITALS: BP 137/77
[2019-07-07] MEDS: D5%-0.9% NACL+KCL 20MEQ 1,000 ML IV SCH ×2 (02:00→12:00)
[2019-07-07] MEDS: CEFAZOLIN PMX 1GM/50ML 50 ML IVPB SCH (03:11)
[2019-07-07 04:05] VITALS: BP 111/62
[2019-07-07 04:55] LABS: BASOPHILS # (AUTO) 0.04 x10^3/uL (0-0.1); BASOPHILS % (AUTO) 0 % (0-1); EOSINOPHILS % (AUTO) 0 % (1-7); LYMPHOCYTES # (AUTO) 1.21 x10^3/uL (1-3.4); LYMPHOCYTES % (AUTO) 8 % (22-44); MD NO; MEAN CORPUSCULAR HEMOGLOBIN 30.6 pg (27.5-34.5); MEAN CORPUSCULAR VOLUME 92.8 fL (81-97); MONOCYTES # (AUTO) 1.03 x10^3/uL (0.2-0.8); MONOCYTES % (AUTO) 7 % (2-9); NEUTROPHILS # (AUTO) 12.56 x10^3/uL (1.8-6.8); NEUTROPHILS % (AUTO) 85 % (42-75); PLATELET COUNT 377 x10^3/uL (130-400)
[2019-07-07 05:23] LABS: CHLORIDE 106 mmol/L (98-107)
[2019-07-07 05:56] LABS: ANION GAP 6 mmol/L (5-15); CALCIUM 8.1 mg/dL (8.5-10.1); CREATININE 0.83 mg/dL (0.7-1.3)
[2019-07-07] MEDS ORDERED: ENOXAPARIN 40 MG/0.4 ML SQ SCH (06:00)
[2019-07-07 07:20] VITALS: BP 132/77
[2019-07-07] MEDS: BACLOFEN 10 MG TABLET PO SCH ×2 (08:13→16:13)
[2019-07-07] MEDS: GABAPENTIN 300 MG CAPSULE PO SCH (08:13)
[2019-07-07] MEDS ORDERED: SENNA/DOCUSATE TABLET PO SCH (09:00)
[2019-07-07] MEDS ORDERED: TAMSULOSIN 0.4 MG CAP.ER.24H PO SCH (09:00)
[2019-07-07] MEDS ORDERED: OXYC-302 PO (10:22)
[2019-07-07] MEDS ORDERED: BACL-19 PO (10:23)
[2019-07-07] MEDS ORDERED: CEPH-368 PO (10:24)
[2019-07-07] MEDS ORDERED: FLU VAC QS 19-20(4YR UP)CEL/PF 0.5 ML IM-VACC ONE (11:00)
[2019-07-07] MEDS ORDERED: FLU VACC QS2019-20 36MOS UP/PF 0.5 ML IM-VACC ONE (11:30)
[2019-07-07 13:28] VITALS: BP 121/72
[2019-07-07] MEDS: OXYcodone/APAP 5/325MG TABLET PO PRN (13:28)
[2019-07-07 17:59] VITALS: BP 101/67
== END 2019-07-07 19:33 | disposition home health service (06) | DRG 519 ==
LOC: ORIP 07:28 → EDSTATUS 09:30 → 4NE 14:00
PROVIDERS: ADMIT Neurological Surgery; ATTEND Neurological Surgery
PROC: 00NY0ZZ Release Lumbar Spinal Cord, Open Approach (ICD-10-PCS; 2019-07-06)
PROC: 01NB3ZZ Release Lumbar Nerve, Percutaneous Approach (ICD-10-PCS; principal; 2019-07-06 10:00)
DX: M48.062 Spinal stenosis, lumbar region with neurogenic claudication (principal); M51.06 Intervertebral disc disorders with myelopathy, lumbar region; M51.16 Intervertebral disc disorders with radiculopathy, lumbar region; M46.90 Unspecified inflammatory spondylopathy, site unspecified; G35 Multiple sclerosis; E78.5 Hyperlipidemia, unspecified; I10 Essential (primary) hypertension; G43.909 Migraine, unspecified, not intractable, without status migrainosus; M19.90 Unspecified osteoarthritis, unspecified site; G56.03 Carpal tunnel syndrome, bilateral upper limbs
CPT/HCPCS: 36415; 72100; 80048; 85025; 90686; C1729; G0378; J0171; J0690; J1100; J1650; J2250; J2405; J2704; J3010; J3370; J0330; J2370; J2800; J3480; J7120